=== PATIENT | male | born 1965 | race Caucasian/White ===

== ENCOUNTER 2020-08-10 07:19 | Inpatient (IN) | payer MEDICAID, OTHER ==
[~2020-08-10] VITALS: Ht 170.2 cm; Wt 81.2 kg
[2020-08-10] MEDS ORDERED: SODIUM CHLORIDE 0.9% 1,000 ML IV ONE (07:45)
[2020-08-10] MEDS ORDERED: LORAZEPAM 2MG/ML CPJ IV ONE ×3 (08:30→10:15)
[2020-08-10] MEDS ORDERED: CHLORDIAZEPOXIDE 25MG CAPSULE PO ONE (08:45)
[2020-08-10] MEDS ORDERED: OCTREOTIDE ACETATE 50 MCG/ML 1ML IV STA (08:59)
[2020-08-10] MEDS ORDERED: FAMOTIDINE 20MG/2ML VIAL IV STA (08:59)
[2020-08-10 09:23] LABS: INR 1.3
[2020-08-10 09:25] LABS: CHLORIDE 95 mEq/L (98-107)
[2020-08-10 10:10] LABS: BASOPHILS % 0.4 % (0.0-2.0); HEMATOCRIT. 46.7 % (42.0-52.0); HEMOGLOBIN. 16.6 g/dL (14.0-18.0); LYMPHOCYTES % 11.2 % (20.0-50.0); MEAN CORPUSCULAR VOLUME 95.4 fL (80.0-94.0); MEAN PLATELET VOLUME 9.4 fl (7.4-10.4); MONOCYTES % 4.3 % (2.0-8.0); NEUTROPHILS % 84.1 % (40.0-76.0); PLATELET 200 x1000/uL (130-400); RED BLOOD CELL COUNT 4.89 mill/uL (4.7-6.1); RED CELL DISTRIBUTION WIDTH 14.7 % (11.6-14.6)
[2020-08-10] MEDS ORDERED: POTASSIUM CHLORIDE INJ 40 MEQ in DEXT 5% WATER 250 ML IV ONE (10:15)
[2020-08-10 10:51] LABS: CLARITY URINE CLEAR (CLEAR); COLOR URINE YELLOW (YELLOW); KETONES URINE 2+ (NEGATIVE); LEUKOCYTE ESTERASE URINE NEGATIVE (NEGATIVE); NITRITE URINE NEGATIVE (NEGATIVE); OCCULT BLOOD URINE 1+ (NEGATIVE); PH URINE 5.5 (4.5-8.0); PROTEIN URINE TRACE (NEGATIVE); SPECIFIC GRAVITY URINE 1.014 (1.005-1.030)
[2020-08-10] MEDS ORDERED: POTASSIUM CHLORIDE 20MEQ TABLET SR PO NR (16:15)
[2020-08-10 16:34] VITALS: BP 134/76
[2020-08-10 16:35] VITALS: BP 134/76
[2020-08-10] MEDS: SODIUM CHLORIDE 0.9% 1,000 ML IV SCH (17:17)
[2020-08-10] MEDS ORDERED: ONDANSETRON HCL 4MG/2ML INJ IV PRN (17:45)
[2020-08-10] MEDS ORDERED: ACETAMINOPHEN 325MG TABLET PO PRN (17:45)
[2020-08-10] MEDS ORDERED: LORAZEPAM 2MG/ML CPJ IV PRN (17:45)
[2020-08-10] MEDS ORDERED: SODIUM CHLORIDE 0.9% 1,000 ML IV SCH (17:45)
[2020-08-10] MEDS ORDERED: DEXTROSE 50% WATER 50ML SYRINGE IV PRN (17:45)
[2020-08-10] MEDS: INSULIN LISPRO 100 UNITS/ML SUBCUT SCH ×2 (18:00→21:10)
[2020-08-10] MEDS: BLOOD SUGAR DIAGNOSTIC STRIP TEST SCH ×2 (18:18→21:10)
[2020-08-10] MEDS: ENOXAPARIN 40MG/0.4ML SYR SUBCUT SCH (18:24)
[2020-08-10 20:00] VITALS: BP 131/74
[2020-08-10] MEDS ORDERED: MVI, ADULT NO.1 10 ML, FOLIC ACID 1 MG, THIAMINE HCL 100 MG in SODIUM CHLORIDE 0.9% 1,0... IV NR (20:00)
[2020-08-10 20:29] LABS: BASOPHILS % 0.5 % (0.0-2.0); EOSINOPHILS % 0.1 % (0.0-5.0); HEMATOCRIT. 41.2 % (42.0-52.0); LYMPHOCYTES % 15.4 % (20.0-50.0); MEAN CORPUSCULAR HEMOGLOBIN 34.4 pg (28.0-32.0); MEAN CORPUSCULAR VOLUME 94.5 fL (80.0-94.0); MEAN PLATELET VOLUME 8.7 fl (7.4-10.4); MONOCYTES % 5.9 % (2.0-8.0); NEUTROPHILS % 78.1 % (40.0-76.0); PLATELET 174 x1000/uL (130-400); RED BLOOD CELL COUNT 4.36 mill/uL (4.7-6.1); RED CELL DISTRIBUTION WIDTH 14.6 % (11.6-14.6)
[2020-08-10 20:41] LABS: CHLORIDE 102 mEq/L (98-107)
[2020-08-10] MEDS: CHLORDIAZEPOXIDE 25MG CAPSULE PO SCH (21:04)
[2020-08-10] MEDS ORDERED: MAGNESIUM 1 G PREMIX 100 ML IV NR (23:00)
[2020-08-10 23:54] LABS: CREATINE KINASE MB FRACTION 4.8 ng/mL (0.5-3.6)
[2020-08-11] VITALS (7 sets, daily range): BP systolic 112–127; BP diastolic 68–84
[2020-08-11] MEDS ORDERED: MAGNESIUM 2 G PREMIX 50 ML IV NR
[2020-08-11] MEDS ORDERED: POTASSIUM CHLORIDE INJ 40 MEQ in DEXT 5% WATER 500 ML IV NR (02:00)
[2020-08-11] MEDS: SODIUM CHLORIDE 0.9% 1,000 ML IV SCH ×3 (04:52→16:45)
[2020-08-11] MEDS: CHLORDIAZEPOXIDE 25MG CAPSULE PO SCH ×3 (05:00→21:00)
[2020-08-11] MEDS: LORAZEPAM 2MG/ML CPJ IV PRN ×4 (05:29→20:50)
[2020-08-11] MEDS: INSULIN LISPRO 100 UNITS/ML SUBCUT SCH ×4 (06:17→20:50)
[2020-08-11] MEDS: BLOOD SUGAR DIAGNOSTIC STRIP TEST SCH ×4 (06:18→21:00)
[2020-08-11 07:54] LABS: CREATINE KINASE MB FRACTION 4.3 ng/mL (0.5-3.6)
[2020-08-11] MEDS: PANTOPRAZOLE SODIUM 40 MG/VIAL IV SCH (10:00)
[2020-08-11] MEDS: MORPHINE SULFATE 2 MG/ML CPJ (NOT FOR IM USE) IV PRN (13:07)
[2020-08-11] MEDS: ENOXAPARIN 40MG/0.4ML SYR SUBCUT SCH (16:44)
[2020-08-11 17:15] LABS: BASOPHILS % 0.4 % (0.0-2.0); EOSINOPHILS % 0.4 % (0.0-5.0); HEMATOCRIT. 42.2 % (42.0-52.0); HEMOGLOBIN. 15.3 g/dL (14.0-18.0); LYMPHOCYTES % 23.6 % (20.0-50.0); MEAN CORPUSCULAR HEMOGLOBIN 34.6 pg (28.0-32.0); MEAN CORPUSCULAR VOLUME 95.1 fL (80.0-94.0); MEAN PLATELET VOLUME 8.6 fl (7.4-10.4); MONOCYTES % 7.7 % (2.0-8.0); NEUTROPHILS % 67.9 % (40.0-76.0); PLATELET 159 x1000/uL (130-400); RED BLOOD CELL COUNT 4.43 mill/uL (4.7-6.1); RED CELL DISTRIBUTION WIDTH 14.5 % (11.6-14.6)
[2020-08-11 17:29] LABS: CHLORIDE 104 mEq/L (98-107)
[2020-08-11] MEDS ORDERED: POTASSIUM CHLORIDE INJ 40 MEQ in DEXT 5% WATER 250 ML IV NR (21:00)
[2020-08-11] MEDS ORDERED: MAGNESIUM SULFATE 3 GM in DEXT 5% WATER 96 ML IV NR (21:00)
[2020-08-12] VITALS: BP 131/79
[2020-08-12] MEDS: MORPHINE SULFATE 2 MG/ML CPJ (NOT FOR IM USE) IV PRN ×4 (00:48→22:28)
[2020-08-12] MEDS: LORAZEPAM 2MG/ML CPJ IV PRN ×5 (00:48→22:34)
[2020-08-12 04:00] VITALS: BP 131/97
[2020-08-12] MEDS: BLOOD SUGAR DIAGNOSTIC STRIP TEST SCH ×4 (05:45→20:52)
[2020-08-12] MEDS: CHLORDIAZEPOXIDE 25MG CAPSULE PO SCH ×3 (06:19→20:49)
[2020-08-12] MEDS: INSULIN LISPRO 100 UNITS/ML SUBCUT SCH ×4 (06:20→21:00)
[2020-08-12 08:00] VITALS: BP 108/73
[2020-08-12 08:37] LABS: BASOPHILS % 0.5 % (0.0-2.0); EOSINOPHILS % 0.9 % (0.0-5.0); HEMATOCRIT. 42.3 % (42.0-52.0); LYMPHOCYTES % 32.1 % (20.0-50.0); MEAN CORPUSCULAR HEMOGLOBIN 33.8 pg (28.0-32.0); MEAN CORPUSCULAR VOLUME 95.4 fL (80.0-94.0); MEAN PLATELET VOLUME 8.7 fl (7.4-10.4); MONOCYTES % 6.4 % (2.0-8.0); NEUTROPHILS % 60.1 % (40.0-76.0); PLATELET 165 x1000/uL (130-400); RED BLOOD CELL COUNT 4.43 mill/uL (4.7-6.1); RED CELL DISTRIBUTION WIDTH 15.1 % (11.6-14.6)
[2020-08-12 09:03] LABS: CHLORIDE 106 mEq/L (98-107)
[2020-08-12 09:08] LABS: TOTAL IRON BINDING CAPACITY 158 ug/dL (250-450)
[2020-08-12] MEDS: PANTOPRAZOLE SODIUM 40 MG/VIAL IV SCH (09:08)
[2020-08-12] MEDS: SODIUM CHLORIDE 0.9% 1,000 ML IV SCH ×2 (09:08→16:54)
[2020-08-12 09:14] LABS: FOLIC ACID (FOLATE) SERUM >20 ng/mL ng/mL (>5.38)
[2020-08-12 09:25] LABS: VITAMIN B12 SERUM 1583 pg/mL (211-911)
[2020-08-12] MEDS ORDERED: POTASSIUM CHLORIDE 20MEQ TABLET SR PO SCH (10:00)
[2020-08-12 12:00] VITALS: BP 120/95
[2020-08-12 12:28] LABS: FERRITIN 1665 ng/mL (22-322)
[2020-08-12] MEDS ORDERED: POTASSIUM CHLORIDE 20MEQ TABLET SR PO NR (15:30)
[2020-08-12 16:00] VITALS: BP 112/82
[2020-08-12] MEDS: METOPROLOL TARTRATE 50MG TABLET PO SCH ×2 (16:53→20:51)
[2020-08-12] MEDS: ENOXAPARIN 40MG/0.4ML SYR SUBCUT SCH (16:54)
[2020-08-12 20:00] VITALS: BP 114/89
[2020-08-13] VITALS: BP 115/88
[2020-08-13 04:00] VITALS: BP 119/80
[2020-08-13] MEDS: CHLORDIAZEPOXIDE 25MG CAPSULE PO SCH ×3 (05:57→21:53)
[2020-08-13] MEDS: BLOOD SUGAR DIAGNOSTIC STRIP TEST SCH ×4 (05:57→21:53)
[2020-08-13] MEDS: INSULIN LISPRO 100 UNITS/ML SUBCUT SCH ×4 (07:15→21:53)
[2020-08-13 07:48] LABS: INR 1.1; PROTHROMBIN TIME 11.4 sec (9.6-11.0)
[2020-08-13 07:52] LABS: BASOPHILS % 0.5 % (0.0-2.0); EOSINOPHILS % 1.8 % (0.0-5.0); HEMOGLOBIN. 13.5 g/dL (14.0-18.0); LYMPHOCYTES % 32.1 % (20.0-50.0); MEAN CORPUSCULAR HEMOGLOBIN 33.9 pg (28.0-32.0); MEAN CORPUSCULAR VOLUME 97.9 fL (80.0-94.0); MONOCYTES % 5.7 % (2.0-8.0); NEUTROPHILS % 59.9 % (40.0-76.0); PLATELET 132 x1000/uL (130-400); RED BLOOD CELL COUNT 3.98 mill/uL (4.7-6.1); RED CELL DISTRIBUTION WIDTH 14.9 % (11.6-14.6)
[2020-08-13 08:00] VITALS: BP 119/85
[2020-08-13 08:12] LABS: CHLORIDE 108 mEq/L (98-107)
[2020-08-13 08:24] LABS: T4 FREE 1.19 ng/dL (0.76-1.46)
[2020-08-13] MEDS: METOPROLOL TARTRATE 50MG TABLET PO SCH ×2 (09:00→21:54)
[2020-08-13] MEDS: PANTOPRAZOLE SODIUM 40 MG/VIAL IV SCH (09:00)
[2020-08-13] MEDS ORDERED: POTASSIUM CHLORIDE 20MEQ/PACKET PO NR (09:24)
[2020-08-13] MEDS: SODIUM CHLORIDE 0.9% 1,000 ML IV SCH ×3 (10:09→21:59)
[2020-08-13 12:00] VITALS: BP 111/71
[2020-08-13] MEDS ORDERED: POTASSIUM CHLORIDE INJ 40 MEQ in DEXT 5% WATER 250 ML IV NR ×2 (12:00→16:00)
[2020-08-13] MEDS ORDERED: MAGNESIUM 2 G PREMIX 50 ML IV NR (12:00)
[2020-08-13 14:41] LABS: HEPATITIS B SURFACE ANTIGEN NEGATIVE
[2020-08-13 15:11] LABS: HEPATITIS A AB IGM NEGATIVE (NEGATIVE)
[2020-08-13] MEDS ORDERED: POTASSIUM CHLORIDE 20MEQ/PACKET PO SCH (16:00)
[2020-08-13] MEDS ORDERED: PROPOFOL 200MG/20ML VIAL IV ONE (16:34)
[2020-08-13] MEDS ORDERED: ONDANSETRON HCL 4MG/2ML INJ IV PRN (16:45)
[2020-08-13] MEDS ORDERED: LABETALOL 5MG/ML SYR 20 MG/4 ML SYRINGE IV PRN (16:45)
[2020-08-13] MEDS ORDERED: HYDROMORPHONE HCL/PF 2MG/ML CPJ IV PRN (16:45)
[2020-08-13] MEDS ORDERED: MEPERIDINE HCL/PF 25MG/ML CPJ IV PRN (16:45)
[2020-08-13 20:00] VITALS: BP 118/74
[2020-08-13] MEDS: LORAZEPAM 2MG/ML CPJ IV PRN (20:07)
[2020-08-14] VITALS: BP 115/74
[2020-08-14 04:00] VITALS: BP 128/62
[2020-08-14] MEDS: CHLORDIAZEPOXIDE 25MG CAPSULE PO SCH ×3 (06:00→13:51)
[2020-08-14] MEDS: SUCRALFATE 1 G/10 ML UDC PO SCH ×3 (06:44→16:45)
[2020-08-14] MEDS: BLOOD SUGAR DIAGNOSTIC STRIP TEST SCH ×3 (06:45→16:45)
[2020-08-14] MEDS: INSULIN LISPRO 100 UNITS/ML SUBCUT SCH ×3 (06:49→17:12)
[2020-08-14] MEDS: LORAZEPAM 2MG/ML CPJ IV PRN ×2 (07:00→13:39)
[2020-08-14 07:55] LABS: CHLORIDE 107 mEq/L (98-107)
[2020-08-14 07:56] LABS: BASOPHILS % 0.5 % (0.0-2.0); EOSINOPHILS % 1.4 % (0.0-5.0); HEMATOCRIT. 38.6 % (42.0-52.0); HEMOGLOBIN. 13.5 g/dL (14.0-18.0); LYMPHOCYTES % 33.2 % (20.0-50.0); MEAN CORPUSCULAR VOLUME 97.3 fL (80.0-94.0); MEAN PLATELET VOLUME 8.8 fl (7.4-10.4); NEUTROPHILS % 58.9 % (40.0-76.0); PLATELET 136 x1000/uL (130-400); RED BLOOD CELL COUNT 3.96 mill/uL (4.7-6.1); RED CELL DISTRIBUTION WIDTH 14.5 % (11.6-14.6)
[2020-08-14 08:00] VITALS: BP 108/67
[2020-08-14] MEDS ORDERED: NALT50TA5 MT (08:21)
[2020-08-14] MEDS ORDERED: AMPH15TA2 MT (08:21)
[2020-08-14] MEDS ORDERED: GABA-290 PO (08:21)
[2020-08-14] MEDS ORDERED: AMLO10TA80 PO (08:25)
[2020-08-14] MEDS ORDERED: FINA5TAB11 PO (08:25)
[2020-08-14] MEDS ORDERED: OMEP10CA5 PO (08:25)
[2020-08-14] MEDS ORDERED: LOSA25TA26 PO (08:25)
[2020-08-14] MEDS ORDERED: TAMS-11 PO (08:25)
[2020-08-14] MEDS ORDERED: METO-385 PO (08:25)
[2020-08-14] MEDS: METOPROLOL TARTRATE 50MG TABLET PO SCH (09:00)
[2020-08-14] MEDS: MAGNESIUM OXIDE 400MG TABLET PO SCH ×2 (10:14→10:20)
[2020-08-14] MEDS: PANTOPRAZOLE SODIUM 40 MG/VIAL IV SCH (10:14)
[2020-08-14] MEDS: SODIUM CHLORIDE 0.9% 1,000 ML IV SCH ×2 (10:21→16:15)
[2020-08-14] MEDS ORDERED: MAGNESIUM 2 G PREMIX 50 ML IV NR (11:00)
[2020-08-14] MEDS ORDERED: POTASSIUM CHLORIDE INJ 40 MEQ in DEXT 5% WATER 250 ML IV NR (11:00)
[2020-08-14] MEDS ORDERED: METO25TA6 MT (11:33)
[2020-08-14] MEDS ORDERED: OMEP20TA2 MT (11:33)
[2020-08-14] MEDS ORDERED: FOLI-43 MT (11:33)
[2020-08-14] MEDS ORDERED: SUCR1TAB30 MT (11:33)
[2020-08-14] MEDS ORDERED: MULT-1146 MT (11:33)
[2020-08-14] MEDS ORDERED: THIA100T72 MT (11:33)
[2020-08-14] MEDS ORDERED: HYDROMORPHONE HCL/PF 2MG/ML (OR) ONE (11:39)
[2020-08-14 12:00] VITALS: BP 131/86
[2020-08-14] MEDS: MORPHINE SULFATE 2 MG/ML CPJ (NOT FOR IM USE) IV PRN (13:15)
[2020-08-14 16:00] VITALS: BP 121/79
[2020-08-14 16:52] VITALS: BP 121/79
[2020-08-14] MEDS ORDERED: PROP10TA10 MT (17:13)
[2020-08-14] MEDS ORDERED: PROPRANOLOL HCL 10MG TABLET PO SCH (17:15)
== END 2020-08-14 17:30 | disposition home or self-care (01) | DRG 241 ==
LOC: ER 07:47 → 5WST 10:40 → ENRESERV 14:55 → 5WST 17:10
PROVIDERS: ADMIT Internal Medicine; ATTEND Internal Medicine
PROC: 0DJ08ZZ Inspection of Upper Intestinal Tract, Via Natural or Artificial Opening Endoscopic (ICD-10-PCS; principal; 2020-08-13)
DX: K25.4 Chronic or unspecified gastric ulcer with hemorrhage (principal); K22.11 Ulcer of esophagus with bleeding; K76.6 Portal hypertension; E83.42 Hypomagnesemia; I47.1 Supraventricular tachycardia; I85.10 Secondary esophageal varices without bleeding; K26.4 Chronic or unspecified duodenal ulcer with hemorrhage; K29.60 Other gastritis without bleeding; E83.119 Hemochromatosis, unspecified; K70.31 Alcoholic cirrhosis of liver with ascites; D53.9 Nutritional anemia, unspecified; E11.9 Type 2 diabetes mellitus without complications; E78.5 Hyperlipidemia, unspecified; K29.71 Gastritis, unspecified, with bleeding; E87.6 Hypokalemia; F17.210 Nicotine dependence, cigarettes, uncomplicated; F41.9 Anxiety disorder, unspecified; I10 Essential (primary) hypertension; K21.9 Gastro-esophageal reflux disease without esophagitis; R74.01 Elevation of levels of liver transaminase levels; I86.4 Gastric varices; K31.9 Disease of stomach and duodenum, unspecified; K44.9 Diaphragmatic hernia without obstruction or gangrene; Z20.822 Contact with and (suspected) exposure to COVID-19; F10.130 Alcohol abuse with withdrawal, uncomplicated; Z59.0 Homelessness; Z79.899 Other long term (current) drug therapy
CPT/HCPCS: 36415; 71045; 74176; 76700; 80048; 80053; 80076; 80320; 81003; 82140; 82248; 82550; 82553; 82607; 82728; 82746; 82962; 83036; 83540; 83550; 83735; 84439; 84443; 84481; 84484; 85025; 86705; 86709; 86803; 86850; 86900; 87340; 87426; 93005; 93306; 93970; 97162; 99291; C1893; C9113; J1170; J1650; J1815; J2060; J2270; J2354; J2704; J3411; J3475; J3480; J3490; J7030; J7060; G0480